=== PATIENT | male | born 1965 | race Caucasian/White ===

== ENCOUNTER 2018-05-10 13:27 | Day surgery (SDC) | payer OTHER ==
[~2018-05-10 13:27] MED LIST: CEFAZOLIN 2 GM/50 ML (PMX) 50 ML IVPB
[2018-05-10 14:14] LABS: ADD MAN DIFF? NO
[2018-05-10 14:18] LABS: BASOPHILS % 0.9 % (0.0-2.0); EOSINOPHILS % 0.6 % (0.0-7.0); HEMATOCRIT 44.3 % (42.0-52.0); HEMOGLOBIN 15.1 g/dl (14.0-18.0); LYMPHOCYTES # 1.7 10^3/ul (0.8-2.9); LYMPHOCYTES % 35.8 % (15.0-51.0); MEAN CORPUSCULAR HEMOGLOBIN 30.3 pg (29.0-33.0); MEAN CORPUSCULAR HGB CONC 34.1 g/dl (32.0-37.0); MEAN CORPUSCULAR VOLUME 88.8 fl (82.0-101.0); MEAN PLATELET VOLUME 10.2 fl (7.4-10.4); MONOCYTE # 0.3 10^3/ul (0.3-0.9); MONOCYTES % 6.2 % (0.0-11.0); NEUTROPHIL # 2.6 10^3/ul (1.6-7.5); NEUTROPHILS % 56.1 % (39.0-77.0); PLATELET COUNT 207 10^3/UL (140-415); RED BLOOD COUNT 4.99 10^6/ul (4.70-6.10); RED CELL DISTRIBUTION WIDTH 12.2 % (11.5-14.5)
[2018-05-10 14:18] LABS: WHITE BLOOD COUNT 4.7 10^3/ul (4.8-10.8)
[2018-05-10 14:36] LABS: INR 0.94; PROTIME 12.7 Sec (11.9-14.9)
[2018-05-10 14:37] LABS: PARTIAL THROMBOPLASTIN TIME 28.2 Sec (23.0-35.0)
[2018-05-10 14:47] LABS: ANION GAP 13 (5-13); BLOOD UREA NITROGEN 18 mg/dl (7-20); CALCIUM 9.7 mg/dl (8.4-10.2); CARBON DIOXIDE 28 mmol/L (21-31); CHLORIDE 99 mmol/L (97-110); Estimated GFR > 60 mL/min (>60); GLUCOSE 96 mg/dl (70-220); POTASSIUM 4.4 mmol/L (3.5-5.1); SODIUM 140 mmol/L (135-144)
[2018-05-10] MEDS ORDERED: ONDANSETRON 4 MG INJ IV (15:00)
[2018-05-10] MEDS ORDERED: HYDROmorphONE 1 MG/5 ML IV SYRINGE IV ×2 (15:00)
[2018-05-10] MEDS ORDERED: DIPHENHYDRAMINE 50 MG INJ IV (15:00)
[2018-05-10] MEDS ORDERED: MEPERIDINE 25 MG INJ IV (15:00)
[2018-05-10] MEDS ORDERED: PROCHLORPERAZINE 10 MG INJ IV (15:00)
[2018-05-10] MEDS ORDERED: FENTAnyl 50 MCG/ML VIAL IV (15:00)
[2018-05-10] MEDS ORDERED: PROPOFOL 20 ML (15:26)
[2018-05-10] MEDS ORDERED: FENTAnyl 50 MCG/ML VIAL (15:26)
[2018-05-10] MEDS ORDERED: MIDAZOLAM 1 MG/ML 2 ML INJ (15:26)
[2018-05-10] MEDS ORDERED: LIDOCAINE 2% (SDV) 5 ML INJ (15:26)
[2018-05-10] MEDS ORDERED: BUPIVACAINE 0.5% (SDV) 30 ML INJ (15:28)
[2018-05-10] MEDS ORDERED: CEFAZOLIN 1 GM INJ (15:52)
[2018-05-10] MEDS ORDERED: FAMOTIDINE 20 MG INJ (15:54)
[2018-05-10] MEDS ORDERED: ONDANSETRON 4 MG INJ (15:54)
[2018-05-10] MEDS ORDERED: DEXAMETHASONE 4 MG/ML 5 ML INJ (15:54)
[2018-05-10] MEDS: BUPIVACAINE 0.5% (SDV) 30 ML INJ (16:30)
[2018-05-10] MEDS: HYDROmorphONE 1 MG/5 ML IV SYRINGE IV (16:50)
[2018-05-10] MEDS: OXYCODONE/ACETAMINOPHEN (5/325) TAB PO (17:37)
== END 2018-05-10 18:10 | disposition home or self-care (01) ==
LOC: SDS 13:27
DX: M25.641 Stiffness of right hand, not elsewhere classified (principal); M24.641 Ankylosis, right hand; M24.541 Contracture, right hand; M67.843 Other specified disorders of tendon, right hand
CPT/HCPCS: 26445; 80048; 85025; 85610; 85730